=== PATIENT | female | born 1990 | race Caucasian/White ===

== ENCOUNTER 2023-06-23 12:25 | Outpatient (AMB) | payer OTHER, SELFPAY ==
--- NOTE | 2023-06-23 12:59 | AM.OFFWIN_ITS ---
Intake Vital Signs 06/23/23 13:03 Height 5 ft 4 in Weight 154 lb 6 oz BMI 26.5 BP 106/64 Blood Pressure Location Lt brachial Position Sitting Pulse 98 Pulse Source Pulse Oximeter Temp 97.6 F Temp Source Temporal Artery Scan Pulse Oximetry (%) 100 Oxygen Delivery Method Room Air Intake Visit Reasons: [employer]/possible strep(lobby masked) Intake Note: Pt is here c/o sore throat with white spots. Patient Tobacco Use Status: Never used Tobacco Allergies No Known Allergies Allergy (Verified 06/23/23 13:06) Do you need a note to return to daycare/school/sports/work: No HPI HPI Comments History of Present Illness Details This is a 32-year-old female who presents to the office today requesting a strep test. Patient states she noticed some white patches in the back of her throat yesterday. She denies any sore throat. She denies any fevers or chills. She actually reports feeling well. PFSH Social History Patient Tobacco Use Status: Never used Tobacco Review of Systems Const All systems reviewed & are unremarkable except as noted in HPI and below Reports no additional complaints Eyes Reports no additional complaints ENT Reports no additional complaints Card Reports no additional complaints Resp Reports no additional complaints GI Reports no additional complaints Reports no additional complaints Musc Reports no additional complaints Skin/Breast Reports system reviewed and no additional complaints, except as documented Neuro Reports no additional complaints Psych Reports no additional complaints Endo Reports no additional complaints Poncho/Lymph Reports no additional complaints Aller/Immun Reports no additional complaints Physical Exam Vital Signs: Last Vital Signs Temp 97.6 F 06/23/23 13:03 Pulse 98 06/23/23 13:03 BP 106/64 06/23/23 13:03 Pulse Ox 100 06/23/23 13:03 Oxygen Delivery Method Room Air 06/23/23 13:03 BMI result Body Mass Index 26.5 Const Other: Vital signs reviewed. Constitutional: Non-toxic appearing. No acute distress. Well-developed and well-nourished. HEENT: There is a small white ulceration on the left tonsil with surrounding erythema consistent with an aphthous ulcer. No patchy white exudates. No posterior pharyngeal erythema. Skin: Warm and dry. No rashes or lesions noted. Neck: Full and painless range of motion. No cervical lymphadenopathy. Cardio: Regular rate. No lower extremity edema. No JVD. Pulmonary: No respiratory distress. No accessory muscle usage. Gastrointestinal: Soft, nontender, and nondistended in all 4 quadrants. Musculoskeletal: Normal range of motion in joints throughout the body. No deformity or other signs of injury. Neuro: Alert and oriented x4. Cranial nerves 2-12 grossly intact. No focal deficits appreciated. Psych: Normal mood and affect. Results AMB Rapid Strep AMB Rapid Strep Negative Last Edit by Jelly Abdalla CMA on 06/23/23 13:27 Assessment & Plan Assessment & Plan (1) Aphthous ulcer: Code(s): K12.0 - Recurrent oral aphthae Plan: This is a 32-year-old female who presented to the office requesting a strep test due to white patches in her throat. On physical examination, there is a small white ulceration with surrounding erythema consistent with an aphthous ulcer. Patient was reassured about the benign nature of this condition. Her rapid strep test was negative. She was recommended to continue with oral hygiene and utilize salt water gargles. She denies any significant sore throat or mouth pain, so will hold off on lidocaine solution for now. Patient was advised to follow-up here or proceed to the emergency room for persistent/worsening symptoms. Orders: Orders AMB Rapid Strep Screen Today Z13.9 - Encounter for screening, unspecified Coding Level of Care Code New Pt Level 3 (59287) Diagnoses Aphthous ulcer K12.0
[2023-06-23 13:03] VITALS: BP 106/64; PULSE 98; TEMP 36.4; O2SAT 100; BMI 26.5
== END 2023-06-23 13:46 | disposition home or self-care (01) ==
PROVIDERS: Visit Provider Physician Assistant Medical
DX: K12.0 Recurrent oral aphthae (principal); Z13.9 Encounter for screening, unspecified
CPT/HCPCS: 87880; 99203